=== PATIENT | male | born 1945 | race Caucasian/White ===

== ENCOUNTER → 2018-08-18 | Day surgery (SDC) | payer MEDICARE ==
[2018-08-14 12:49] LABS: BASOPHILS % 0.6 % (0.0-1.0); EOSINOPHILS # (AUTO) 0.3 (0.0-0.4); HEMATOCRIT 37.7 % (38.2-49.6); HEMOGLOBIN 13.1 g/dL (14.0-18.0); LYMPHOCYTES # (AUTO) 2.3 (1.0-3.2); LYMPHOCYTES % 34.2 % (18.0-39.1); MEAN CORPUSCULAR HEMOGLOBIN 29.3 pg (28-32); MEAN CORPUSCULAR HGB CONC 34.7 g/dL (31-35); MEAN CORPUSCULAR VOLUME 84.3 fL (81-99); MONOCYTES # (AUTO) 0.7 (0.2-0.8); MONOCYTES % 10.1 % (4.4-11.3); NEUTROPHILS # (AUTO) 3.3 (2.1-6.9); NEUTROPHILS % 49.9 % (38.7-80.0); PLATELET COUNT 135 x10e3/uL (140-360); RED BLOOD COUNT 4.47 x10e6/uL (4.3-5.7); RED CELL DISTRIBUTION WIDTH 12.8 % (11.7-14.4)
--- NOTE | 2018-08-14 13:20 | Diagnostic Imaging Report ---
Exam: Abdominal film Clinical History: Preoperative study for lithotripsy Comparison: None. DISCUSSION: Bilateral round lucent centered pelvic calcifications likely reflect phleboliths. No definite calcifications project over the renal shadows or expected ureteral courses. Prostatic brachytherapy seeds are noted. 2 seeds project over the right sacral ala as well. Bowel gas pattern is nonobstructive. Regional skeletal structures are intact. IMPRESSION: No plain film evidence of urolithiasis. Signed by: Dr. Sukumar Griffin M.D. on 08/14/2018 1:17 PM
--- NOTE | 2018-08-14 14:12 | Diagnostic Imaging Report ---
EXAM: CHEST 2 VIEWS DATE: 08/14/2018 12:18 PM INDICATION: Preop ESWL COMPARISON: None FINDINGS: Lines and tubes: None Heart size normal. No focal pulmonary opacity, pleural effusion or pneumothorax. Faint density projected on right lower chest compatible with nipple shadow. There is a 3 mm linear metallic surgical clip or foreign body projected in the right middle lobe. Upper abdomen unremarkable. No acute bony abnormality. IMPRESSION: No evidence for acute disease. Signed by: Dr. Dagoberto Becker M.D. on 08/14/2018 2:08 PM
[~2018-08-18] MED LIST: ASPIRIN325 MG PO; BELLADONNA/OPIUM 30 MG SUPP RC ONE; BUPROPION HCL100 MG PO; CALCIUM CITRAT200 MG PO; CEFTRIAXONE SOD 1 GM/NS 50 ML 50 ML IV ONE; COQ-10100 MG PO; CRESTOR10 MG PO; CYMBALTA30 MG PO; DEXAMETHASONE SOD PHOS INJ 4 MG/ML VIAL ONE; DOXAZOSIN MESYLA2 MG PO; FIBER500 MG PO; IOPAMIDOL 610MG/1ML 300 MG/ML VIAL IV ONE; LIDOCAINE HCL 2% LOCAL INJ 5 ML SDV VIAL INJ ONE; LOSARTAN POTAS100 MG PO; LUPRON DEPOT7.5 MG INJ; ONDANSETRON HCL INJ 2MG/ML 2ML 2 MG/ML VIAL ONE; PROPOFOL IV EMULSION 10 MG/ML 20 ML VIAL ONE; SEVOFLURANE INHAL SOLN 250 ML PEN BTL ONE
--- OUTSIDE RECORDS SUMMARY | 2018-08-18 06:04 | XMS REPORT ---
Author Author [facility] Address Unknown Phone Unavailable Care Team Providers Care Pressure Testing Technician Name Role Phone FLORENCIA PORTILLO Unavailable Unavailable Problems This patient has no known problems. Allergies, Adverse Reactions, Alerts This patient has no known allergies or adverse reactions. Medications This patient has no known medications. Results Test Description Test Time Test Comments Text Results Atomic Results Result Comments CHEST 2 VIEWS 2018-08-14 14:04:00 [facility] [address] [address] Patient Name: BONY VILLASEÑOR MR #: [id number] : 1945 Age/Sex: 73/M Req #: [id number] Adm Physician: Ordered by: FLORENCIA PORTILLO MD Report #: [id number] Location: OR Room/Bed: Procedure: [id number] DX/CHEST 2 VIEWS Exam Date: 08/14/18 Exam Time: 1250 REPORT STATUS: Signed EXAM: CHEST 2 VIEWS DATE: 08/14/2018 12:18 PM INDICATION: Preop ESWL COMPARISON: None FINDINGS: Lines and tubes: None Heart size normal. No focal pulmonary opacity, pleural effusion or pneumothorax. Faint density projected on right lower chest compatible with nipple shadow. There is a 3 mm linear metallic surgical clip or foreign body projected in the right middle lobe. Upper abdomen unremarkable. No acute bony abnormality. IMPRESSION: No evidence for acute disease. Signed by: Dr. Juan Flowers M.D. on 08/14/2018 2:08 PM Dictated By: JUAN FLOWERS MD 07 Transcribed By: MAYNOR on 08/14/181407 COPY TO: FLORENCIA PORTILLO MD ABDOMEN-1VIEW ([facility]) 2018-08-14 13:15:00 [address] [address] Patient Name: BONY VILLASEÑOR MR #: [id number] : 1945 Age/Sex: 73/M Req #: [id number] Adm Physician: Ordered by: FLORENCIA PORTILLO MD Report #: [id number] Location: OR Room/Bed: Procedure: [id number] DX/ABDOMEN-1VIEW ([facility]) Exam Date: 08/14/18 Exam Time: 1250 REPORT STATUS: Signed Exam: Abdominal film Clinical History: Preoperative study for lithotripsy Comparison: None. DISCUSSION: Bilateral round lucent centered pelvic calcifications likely reflect phleboliths. No definite calcifications project over the renal shadows or expected ureteral courses. Prostatic brachytherapy seeds are noted. 2 seeds project over the right sacral ala as well. Bowel gas pattern is nonobstructive. Regional skeletal structures are intact. IMPRESSION: No plain film evidence of urolithiasis. Signed by: Dr. Angela Gómez M.D. on 08/14/2018 1:17 PM Dictated By: ANGELA GÓMEZ MD 16 Transcribed By: MAYNOR on 08/14/181316 COPY TO: FLORENCIA PORTILLO MD
--- NOTE | 2018-08-18 07:10 | NUR ---
SPIRITUAL CARE - Pre-Surgery Assessment: Pt in bed. Pt reported supportive attention from family and friends. Intervention: I provided pastoral presence, hospitality, and sympathetic listening. I acquainted pt with availability of lumber racker while hospitalized. Outcome: Pt expressed appreciation for visit. No need for follow up indicated at this time. HAYDEN Lilain Spiritual Care Department O: [phone] Pager: [phone] ([phone] number calling from)
[2018-08-18 10:00] VITALS: BP 127/66
--- NOTE | 2018-08-28 02:40 | Operative Report ---
DATE OF PROCEDURE: 08/18/2018 SURGEON: Edmund Camacho MD PREOPERATIVE DIAGNOSES: 1. Left nephrolithiasis. 2. Obstructive benign prostatic hypertrophy. 3. Prostate cancer. POSTOPERATIVE DIAGNOSES: 1. Left nephrolithiasis. 2. Obstructive benign prostatic hypertrophy. 3. Prostate cancer. OPERATION PERFORMED: 1. Staged left-sided extracorporeal shockwave lithotripsy (separate procedure performed for the left nephrolithiasis). 2. Cystourethroscopy with bilateral ureteral catheterization and retrograde ureteropyelography (separate procedure performed for the obstructive BPH). 3. Interpretation of retrograde ureteropyelography. 4. Supervision of fluoroscopy, no radiologist present. ANESTHESIA: General. COMPLICATIONS: None. CLINICAL SUMMARY: Festus Garcias is a 73-year-old man with prostate cancer. He is status post radiotherapy. He has had radiorecurrent prostate cancer and was started on hormonal therapy with excellent response. He is brought to the operating today to manage his nephrolithiasis and evaluate his lower urinary tract. He is aware of the risks of bleeding, infection, injury to adjacent structures, need for additional procedures and elected to proceed. OPERATIVE PROCEDURE IN DETAIL: Informed consent was verified. Festus Garcias was properly identified, taken to the operating room, placed on the lithotripsy table in supine position. Anesthesia was uneventfully begun. The patient's 6 mm left nephrolithiasis was localized with biplanar fluoroscopy. A total 3000 shocks were delivered with excellent fragmentation. The patient was then carefully and gently repositioned in dorsal lithotomy position with all pressure points well padded. His genitalia were prepared and draped in usual sterile fashion. A cystoscope sheath with the visual obturator in place was atraumatically inserted in the patient's urethra. It was guided down the urethra through the prostate bed, which was significant for visually obstructing BPH and into the patient's bladder where there were trabeculations noted. Normally positioned and configured ureteral orifices were identified. There were no suspicious mucosal lesions. There were no tumors. There were no stones. A ureteral catheter was used to cannulate each ureter and retrograde ureteral pyelograms were performed. Interpretation of retrograde ureteropyelography: Contrast was instilled in retrograde fashion bilaterally. There were no tumors, no stones, no diverticula. Unobstructed drainage was observed bilaterally fluoroscopically. There were filling defects in the left kidney corresponding to the region of lithotripsy, which would be consistent with stone fragments as well as a blood clot. Nevertheless, there was unobstructed drainage observed fluoroscopically on left hand side. The patient's bladder was drained, cystoscope was withdrawn, and the patient was uneventfully reversed from anesthesia and taken to recovery room in stable condition. There were no complications to the procedure. The patient tolerated the procedure well. postoperative instructions were given. We will follow the patient up in the office. Edmund Camacho MD OH/MODL /[id number] cc: Aiden Sims MD
== END | disposition home or self-care (01) ==
LOC: OR 06:01
PROVIDERS: ATTEND Urology
DX: N20.0 Calculus of kidney (principal); N40.1 Benign prostatic hyperplasia with lower urinary tract symptoms; N13.8 Other obstructive and reflux uropathy; C61 Malignant neoplasm of prostate; I10 Essential (primary) hypertension; I25.10 Atherosclerotic heart disease of native coronary artery without angina pectoris; K21.9 Gastro-esophageal reflux disease without esophagitis; Z87.891 Personal history of nicotine dependence; Z98.0 Intestinal bypass and anastomosis status
CPT/HCPCS: 36415; 50590; 52005; 71046; 74018; 85025; 93005; C1758; J0696; J1100; J2001; J2405; J2704; Q9967

== ENCOUNTER → 2018-12-07 | Outpatient (CLI) | payer MEDICARE, OTHER ==
[~2018-12-07] MED LIST changes: -BELLADONNA/OPIUM 30 MG SUPP RC ONE; -CEFTRIAXONE SOD 1 GM/NS 50 ML 50 ML IV ONE; -DEXAMETHASONE SOD PHOS INJ 4 MG/ML VIAL ONE; -IOPAMIDOL 610MG/1ML 300 MG/ML VIAL IV ONE; -LIDOCAINE HCL 2% LOCAL INJ 5 ML SDV VIAL INJ ONE; -ONDANSETRON HCL INJ 2MG/ML 2ML 2 MG/ML VIAL ONE; -PROPOFOL IV EMULSION 10 MG/ML 20 ML VIAL ONE; -SEVOFLURANE INHAL SOLN 250 ML PEN BTL ONE
--- NOTE | 2018-12-07 16:20 | Diagnostic Imaging Report ---
Exam: KUB; 3 views History: History of renal stones Comparison: None available Findings: Prostate seeds are noted. No calcified renal or ureteral stones are seen. Abdominal bowel gas pattern is nonspecific. No suspicious appearing bone knee lesions. Pelvic calcifications appear compatible with phleboliths. Impression: No calcified renal stones identified. Signed by: Dr. Rahul Ray DO on 12/07/2018 4:16 PM
== END ==
LOC: RAD 13:39
PROVIDERS: ATTEND Urology
DX: N20.1 Calculus of ureter (principal)
CPT/HCPCS: 74018

== ENCOUNTER 2019-03-06 11:07 | Inpatient (IN) | payer MEDICARE ==
[~2019-03-06] VITALS: Ht 193 cm; Wt 123.0 kg
[~2019-03-06 11:07] MED LIST changes: +AMLODIPINE BESIL1 GM PO
[2019-03-06] MEDS ORDERED: THROMBIN FOR SOLN 5,000 UNIT VIAL ONE ×2 (11:35→11:36)
[2019-03-06] MEDS ORDERED: SODIUM CHLORIDE 0.9% 500ML 500 ML ONE (11:35)
[2019-03-06] MEDS ORDERED: PROTAMINE SULFATE 10 MG/ML 5 ML VIAL ONE (11:35)
[2019-03-06] MEDS ORDERED: HEPARIN SOD (PORCINE) 5,000 UNIT/ML VIAL ONE (11:35)
[2019-03-06] MEDS ORDERED: BUPIVACAINE HCL 0.5% INJ 30 ML VIAL INJ ONE (11:35)
[2019-03-06] MEDS ORDERED: HEPARIN SOD (PORCINE) 1000 UNIT/ML 30ML ONE (11:36)
[2019-03-06] MEDS ORDERED: LIDOCAINE HCL 1% LOCAL INJ 20 ML VIAL ONE (11:36)
[2019-03-06] MEDS ORDERED: HEPARIN SOD/SOD CHLORIDE 1,000 ML ONE (11:41)
[2019-03-06] MEDS ORDERED: LIDOCAINE HCL 1% 2 ML AMP ONE (12:15)
[2019-03-06] MEDS ORDERED: LIDOCAINE HCL (LTA) 4 ML SOLN ONE (12:21)
[2019-03-06] MEDS ORDERED: ACETAMINOPHEN 1000 MG/100 ML 100 ML IV ONE (12:21)
[2019-03-06] MEDS ORDERED: LIDOCAINE HCL 2% JELLY 5 ML TUBE ONE (14:47)
[2019-03-06] MEDS ORDERED: SEVOFLURANE INHAL SOLN 250 ML PEN BTL ONE (14:47)
[2019-03-06] MEDS ORDERED: ONDANSETRON HCL INJ 2MG/ML 2ML 2 MG/ML VIAL ONE (14:47)
[2019-03-06] MEDS ORDERED: ROCURONIUM BROMIDE 10 MG/ML 5ML VIAL ONE (14:47)
[2019-03-06] MEDS ORDERED: DESFLURANE 240 ML BTL INH ONE (14:47)
[2019-03-06] MEDS ORDERED: PROPOFOL IV EMULSION 10 MG/ML 20 ML VIAL ONE (14:47)
[2019-03-06] MEDS ORDERED: DEXAMETHASONE SOD PHOS INJ 4 MG/ML VIAL ONE (14:47)
[2019-03-06] MEDS ORDERED: LIDOCAINE HCL 2% LOCAL INJ 5 ML SDV VIAL INJ ONE (14:47)
[2019-03-06] MEDS ORDERED: SUGAMMADEX SODIUM 200 MG/2 ML VIAL IV ONE (15:39)
[2019-03-06 16:26] LABS: BASOPHILS % 0.2 % (0.0-1.0); EOSINOPHILS % 0.4 % (0.0-6.0); HEMATOCRIT 30.2 % (38.2-49.6); HEMOGLOBIN 10.4 g/dL (14.0-18.0); LYMPHOCYTES # (AUTO) 0.8 (1.0-3.2); LYMPHOCYTES % 8.6 % (18.0-39.1); MEAN CORPUSCULAR HEMOGLOBIN 29.7 pg (28-32); MEAN CORPUSCULAR HGB CONC 34.4 g/dL (31-35); MEAN CORPUSCULAR VOLUME 86.3 fL (81-99); MONOCYTES # (AUTO) 0.2 (0.2-0.8); MONOCYTES % 2.1 % (4.4-11.3); NEUTROPHILS # (AUTO) 8.4 (2.1-6.9); NEUTROPHILS % 86.7 % (38.7-80.0); PLATELET COUNT 129 x10e3/uL (140-360)
[2019-03-06 16:37] LABS: ALANINE AMINOTRANSFERASE 11 IU/L (0-55); ALBUMIN 3.6 g/dL (3.5-5.0); ALBUMIN/GLOBULIN RATIO 1.4 (0.8-2.0); ALKALINE PHOSPHATASE 66 IU/L (40-150); ANION GAP 13.2 mmol/L (8-16); BLOOD UREA NITROGEN 19 mg/dL (7-26); BUN/CREATININE RATIO 17 (6-25); CALCIUM 9.2 mg/dL (8.4-10.2); CARBON DIOXIDE 23 mmol/L (22-29); CHLORIDE 107 mmol/L (98-107); CREATININE, SERUM 1.09 mg/dL (0.72-1.25); EST GLOMERULAR FILTRATION RATE > 60 ML/MIN (60-); GLUCOSE 156 mg/dL (74-118); POTASSIUM 4.2 mmol/L (3.5-5.1); SODIUM 139 mmol/L (136-145)
--- NOTE | 2019-03-06 16:56 | Diagnostic Imaging Report ---
Chest, 1 view, 03/06/2019. History: Postop. Comparison: 08/14/2018. Findings: The cardiomediastinal silhouette and pulmonary vasculature are within normal limits for a portable exam. There is no focal consolidation or pleural effusion. There are no acute osseous or soft tissue abnormalities. Impression: No acute cardiopulmonary abnormality. Signed by: Rashid Garza on 03/06/2019 4:53 PM
[2019-03-06 17:00] VITALS: BP 139/67
--- NOTE | 2019-03-06 18:32 | History and Physical ---
CHIEF COMPLAINT: "I had carotid surgery today." HISTORY OF PRESENT ILLNESS: This is a 73-year-old white man, who was admitted to [facility] with diagnosis of severe left-sided carotid atherosclerosis. The patient underwent successful left-sided carotid endarterectomy today. The surgery was performed by his vascular surgeon, Dr. Deshaun Cannon. The patient voices no complaints at this time other than soreness on his left side of his neck. The patient underwent a left heart catheterization 2 weeks ago that revealed diffuse nonobstructive coronary artery disease, thus no percutaneous coronary intervention was performed. However, the angiography after the heart catheterization did reveal significant obstruction in the right internal carotid artery. Thus, in the near future, the patient will most likely have an elective right carotid endarterectomy. Blood work performed today on March 06, 2019, revealed BUN and creatinine 19 and 1.09 respectively. Potassium is 4.2. Glucose 156 mg/dL. The patient's hemoglobin is 10.4 g/dL. White blood cell count is 9600 with 86% segmented neutrophils. Chest x-ray did not reveal any acute pathology. REVIEW OF SYSTEMS: GENERAL: Weight is stable. No fever or chills. HEENT: No headaches. No vision changes. CARDIOVASCULAR: No chest pain or shortness of breath. No cough. GI: No nausea, vomiting, or constipation. : No Richardson catheter in place. NEUROMUSCULAR: No limb weakness or numbness. The patient denies any recent stroke-like symptoms. PAST MEDICAL HISTORY: 1. Hypertensive heart disease. 2. Stage 2 chronic kidney disease. 3. Depression. 4. Hyperlipidemia. 5. Carotid atherosclerosis. 6. Nonobstructive coronary artery disease. 7. Ischemic heart disease (myocardial infarction in 1989). 8. Mild obesity. 9. Prostate cancer, in remission. 10. Benign prostatic hypertrophy. 11. Hypogonadism. 12. Varicose veins. 13. Vitamin D deficiency. 14. Prediabetes. PAST SURGICAL HISTORY: 1. Partial colectomy in 2001, because of precancerous polyps. 2. Left carotid endarterectomy today. FAMILY HISTORY: Noncontributory. ALLERGIES: NO KNOWN DRUG ALLERGIES. SOCIAL HISTORY: He is . He lives with his . He is retired. No history of tobacco or alcohol use. MEDICATIONS: 1. Amlodipine 5 mg every night. 2. Aspirin 325 mg daily. 3. Bupropion 300 mg daily. 4. Calcium citrate 200 mg b.i.d. 5. Doxazosin 4 mg daily. 6. Duloxetine 60 mg daily. 7. Lupron injection every 6 months. 8. Losartan 100 mg at bedtime. 9. Methylcellulose 1000 mg daily. 10. Rosuvastatin 10 mg at bedtime. 11. Coenzyme Q10 200 mg daily. PHYSICAL EXAMINATION: GENERAL: He is awake, alert, and fluent, in no distress. Very pleasant. His and adult son are at bedside. VITAL SIGNS: Height is 6 feet 2 inches, weight 267 pounds, BMI 34, blood pressure is 154/78, pulse 74, respiratory rate 18, temperature 97.1, and oxygen saturation 98% on 2 L oxygen. INTEGUMENT: Skin is warm and dry. No pallor, jaundice, or diaphoresis. HEENT: Anterior sclerae. Moist mucous membranes. NECK: Supple. The left carotid area is currently dressed. CARDIOVASCULAR: Distant heart sounds. Regular rate and rhythm with an S4 gallop. LUNGS: No rales. No rhonchi or wheezes. ABDOMEN: Benign. EXTREMITIES: No edema or deformity. NEUROLOGIC: Intact. No gross focal deficits appreciated. DIAGNOSES: 1. Status post left carotid endarterectomy. 2. Right carotid atherosclerosis. 3. Ischemic heart disease (nonobstructive coronary artery disease). 4. Hypertensive heart disease. 5. Stage 2 chronic kidney disease. PLAN: 1. Monitor in the intensive care unit. 2. Continue home medications. 3. Consult Cardiology. 4. Recommend incentive spirometer use to prevent atelectasis. 5. Follow hemoglobin and hematocrit. I spent 75 minutes in the care of this intensive care unit patient. MD BERNARDO Landis/RYANN /[id number] MTDD
[2019-03-06 19:00] VITALS: BP 147/61
[2019-03-06] MEDS ORDERED: D5.45%NS/KCL 20MEQ 1,000 ML IV ONE (19:00)
[2019-03-06 20:00] VITALS: BP 160/81
[2019-03-06] MEDS: CEFAZOLIN SOD 1 GM/NS 50ML 50 ML IV SCH (20:03)
[2019-03-06] MEDS: ACETAMINOPHEN 1000 MG/100 ML IV PRN (20:03)
[2019-03-06 21:00] VITALS: BP 160/77
[2019-03-06] MEDS ORDERED: LOSARTAN POTASSIUM 100 MG TAB PO SCH (21:00)
[2019-03-06] MEDS ORDERED: AMLODIPINE BESYLATE 5 MG TAB PO SCH (21:00)
[2019-03-06] MEDS ORDERED: AMLODIPINE BESYLATE 5 MG PO SCH (21:00)
[2019-03-06] MEDS ORDERED: SIMVASTATIN 20 MG TAB PO SCH (21:00)
--- NOTE | 2019-03-06 21:37 | Operative Report ---
DATE OF PROCEDURE: 03/06/2019 SURGEON: Deshaun Cannon MD PREOPERATIVE DIAGNOSES: Bilateral carotid stenosis, hypertension. POSTOPERATIVE DIAGNOSES: Bilateral carotid stenosis, hypertension. OPERATIVE PROCEDURES: Left carotid endarterectomy with EEG monitoring and prosthetic patch repair. RETRIEVAL SPECIALIST: Nursing staff. ANESTHESIA: General endotracheal with EEG. INDICATIONS: This is a 73-year-old man with bilateral carotid stenoses that are not asymptomatic. Carotid angiogram performed on 02/15/2019 at [facility] revealed an 80% to 90% left internal carotid artery stenosis and an 80% right internal carotid artery stenosis. Staged carotid endarterectomies were recommended. Left carotid endarterectomy was recommended at the first procedure. Prior to surgery, I described the operation to the patient, his , and son. I told him that the risks of surgery would include , bleeding, infection, heart attack, stroke, pneumonia, prolonged ICU stay, mechanical ventilation, tracheostomy, amputation, renal failure, etc. I told them that the risk of stroke might be major or lethal during the operation or in the early postoperative period would be on the order of 3% to 4%. I told them that after correction of both carotid stenosis, the risk of stroke would be approximately 0.5% per year. I told them that if they did not get the surgery, the risk of stroke might be as high as 5% to 6% per year and that this might also be a major or lethal stroke. I told them the only risk to proceed with surgery was to lessen the risk of stroke over the long-term and that the operation would not be expected to improve neurologic function. The patient, , and son all stated that they understood, no further questions, and wanted to proceed. FINDINGS: Tight left internal carotid artery stenosis. Carotid endarterectomy performed uneventfully. EEG remained unchanged throughout. The patient emerged from anesthesia, neurologically intact. DESCRIPTION OF PROCEDURE: The patient was taken to the operative room on March 06, 2019 and placed supine upon the operating table. General endotracheal anesthesia was smoothly induced after EEG monitoring had been instituted. The left neck and left anterior chest were sterilely prepped and draped in the usual fashion using alcohol prewash and Betadine scrub and solution. Time-out was performed appropriately. Incision was made anterior to the left sternocleidomastoid. Dissection was carried down to the carotid sheath. Hypoglossal nerve was clearly identified and meticulously kept out of the field. Common, external and internal carotid arteries were isolated and controlled. The patient was systemically heparinized using 1 mg/kg of heparin intravenously. The internal carotid artery was occluded followed by external and common carotid arteries. Arteriotomy was created starting on the distal common carotid artery, extending onto the internal carotid artery to beyond the area of plaque formation. Endarterectomy was then performed uneventfully. A nicely feathered plaque was removed from the distal internal carotid artery. The common carotid artery plaque was divided at an area of minimal involvement. Endarterectomy was also then carried out at the base of the external carotid artery. All particulate matter was removed. A 7-0 tacking sutures were used proximally and distally. An 8 mm Dacron patch was then sewn into place using 2 running 7-0 Prolene. Prior to completing the patch repair, the arteriotomy was again copiously irrigated. No particulate matter was found. A 4.0 mm dilator passed easily into the distal internal carotid artery. The external carotid artery was opened and air evacuated from the area of repair. The repair was then completed. The common carotid was opened into the external carotid artery for 12 beats and then the internal carotid artery was opened as well. There was an excellent palpable pulse in the distal internal carotid artery as well as a strong Doppler signal. A half dose of protamine was used to reverse the systemic heparin that had been given in a dose of 1 mg/kg intravenously prior to occlusion of any of the vascular structures. There was excellent hemostasis. The wound was closed in layers using absorbable suture. Sterile dressings were applied. Sponge, instrument, needle counts were correct both prior to and after wound closure. Independent search of the operative field by both operating surgeons and nurse revealed no retained instruments or sponges. The patient tolerated the procedure well, was extubated in the operating room, was neurologically intact and was taken to the recovery area in stable condition. MD IVÁN Mccartney/RYANN /[id number]
[2019-03-06 22:00] VITALS: BP 169/73
[2019-03-06 23:00] VITALS: BP 162/76
[2019-03-07] VITALS (14 sets, daily range): BP systolic 134–170; BP diastolic 65–90
[2019-03-07] MEDS: ACETAMINOPHEN 1000 MG/100 ML IV PRN (01:55)
[2019-03-07] MEDS: CEFAZOLIN SOD 1 GM/NS 50ML 50 ML IV SCH (04:11)
--- NOTE | 2019-03-07 05:03 | Consultation ---
DATE OF CONSULTATION: Pulmonary Critical Care Consultation REASON FOR THE CONSULT: ICU management. HISTORY OF PRESENT ILLNESS: Mr. Garcias is a 73-year-old male, who underwent left carotid endarterectomy by Dr. Deshaun Cannon. He is doing well. Postprocedure, he had episodes of dizziness that resulted in evaluation and then found to had carotid atherosclerosis and underwent left carotid endarterectomy. He is denying any complaints of chest pain, nausea, vomiting, or diarrhea. REVIEW OF SYSTEMS: Negative except, GENERAL: Denies any fever or chills. HEAD: Denies any head trauma. ENT: Denies any earache. CVS: Denies any chest pain. The rest of the review of systems are negative except as in HPI. PAST MEDICAL HISTORY: Hypertension, hypertensive heart disease, CKD, depression, BPH, and vitamin D deficiency. PAST SURGICAL HISTORY: Partial colectomy in 2001 because of precancerous polyp and left carotid endarterectomy. FAMILY AND SOCIAL HISTORY: He does not smoke. Does not drink. He is , lives with his . MEDICATIONS: Reviewed. PHYSICAL EXAMINATION: VITAL SIGNS: Temperature 97.8, pulse of 80, blood pressure 147/81, respiratory rate of 18, and O2 saturation 98% on room air. HEENT: Head is atraumatic and normocephalic. NECK: Supple. CHEST: Clear to auscultation bilaterally. No wheezing. HEART: S1, S2 audible. ABDOMEN: Soft. EXTREMITIES: No pedal edema. NEUROLOGIC: Awake and alert. LABORATORY DATA: White count of 9.6, hemoglobin 10.4, and platelets 129. ASSESSMENT AND PLAN: Mr. Garcias is a 73-year-old male, who underwent left carotid endarterectomy. Plan for right carotid endarterectomy. He is doing well. Continue the patient on supportive care. Resume antihypertensive medication. The patient is in no respiratory distress. Thank you for this consult. MD BRE French/RYANN /[id number]
[2019-03-07 05:13] LABS: BASOPHILS % 0.1 % (0.0-1.0); HEMATOCRIT 32.8 % (38.2-49.6); HEMOGLOBIN 11.2 g/dL (14.0-18.0); LYMPHOCYTES # (AUTO) 1.1 (1.0-3.2); LYMPHOCYTES % 10.6 % (18.0-39.1); MEAN CORPUSCULAR HEMOGLOBIN 29.6 pg (28-32); MEAN CORPUSCULAR HGB CONC 34.1 g/dL (31-35); MEAN CORPUSCULAR VOLUME 86.5 fL (81-99); MONOCYTES # (AUTO) 0.7 (0.2-0.8); MONOCYTES % 6.9 % (4.4-11.3); NEUTROPHILS # (AUTO) 8.5 (2.1-6.9); PLATELET COUNT 152 x10e3/uL (140-360); RED BLOOD COUNT 3.79 x10e6/uL (4.3-5.7); RED CELL DISTRIBUTION WIDTH 12.8 % (11.7-14.4)
[2019-03-07 05:36] LABS: ALANINE AMINOTRANSFERASE 12 IU/L (0-55); ALBUMIN 3.8 g/dL (3.5-5.0); ALBUMIN/GLOBULIN RATIO 1.3 (0.8-2.0); ALKALINE PHOSPHATASE 77 IU/L (40-150); ANION GAP 14.5 mmol/L (8-16); BLOOD UREA NITROGEN 16 mg/dL (7-26); BUN/CREATININE RATIO 15 (6-25); CALCIUM 9.5 mg/dL (8.4-10.2); CARBON DIOXIDE 24 mmol/L (22-29); CHLORIDE 103 mmol/L (98-107); CREATININE, SERUM 1.07 mg/dL (0.72-1.25); EST GLOMERULAR FILTRATION RATE > 60 ML/MIN (60-); GLUCOSE 128 mg/dL (74-118); POTASSIUM 4.5 mmol/L (3.5-5.1); SODIUM 137 mmol/L (136-145)
[2019-03-07] MEDS ORDERED: ASPIRIN 325 MG TAB PO SCH (09:00)
[2019-03-07] MEDS ORDERED: SIMVASTATIN 40 MG TAB PO SCH (09:00)
[2019-03-07] MEDS ORDERED: BUPROPION HCL 100 MG TAB PO SCH (09:00)
[2019-03-07] MEDS ORDERED: BUPROPION HCL 150 MG TABCR PO SCH (09:00)
[2019-03-07] MEDS ORDERED: DOXAZOSIN MESYLATE 2 MG TAB PO SCH (09:00)
[2019-03-07] MEDS ORDERED: DULOXETINE HCL 30 MG DELAYED RELEASE PO SCH (09:00)
[2019-03-07] MEDS ORDERED: KETOROLAC TROMETHAMINE 30 MG/ML VIAL IV ONE (09:30)
--- NOTE | 2019-03-07 10:44 | NUR ---
7389- Dr. Sims paged due to patient reporting neck and back pain but IV tylenol not helping with pain. MD ordered Toradol and stated that if ok with Dr. Cannon patient may be discharged today and follow up with Dr. Sims in [address] Lai patient ok to go discharge today as well. 5338- Dr. Cannon called and physician states patient can go home today. Instructions for discharge keep incision clean and dry. Follow up with Dr. Cannon in 3 weeks. Patient given discharge instructions not to lift more than 5 lbs till follow up with Dr. Cannon, and monitor site for s/s of infection and fever. Keep incision clean and dry. Patient stated they understand discharge instructions. Addendum: 03/07/19 at 1137 by Marysol Elizondo RN 1100- Patient ambulated in hallway prior to discharge and tolerated well. Patients family members took pt home.
[2019-03-07] MEDS ORDERED: CEFAZOLIN SOD 1 GM/NS 50ML 50 ML IV SCH ×2 (11:00)
--- NOTE | 2019-03-07 13:12 | NUR ---
Dictated DC summary: [id number]
--- NOTE | 2019-03-07 14:27 | Discharge Summary ---
ADMIT DIAGNOSES: 1. Severe left-sided occlusive carotid artery stenosis. 2. Right carotid atherosclerosis. 3. Ischemic heart disease (nonobstructive coronary artery disease). 4. Hypertensive heart disease. 5. Stage II chronic kidney disease. DISCHARGE DIAGNOSES: 1. Status post left carotid endarterectomy. 2. Right carotid atherosclerosis. 3. Ischemic heart disease (nonobstructive coronary artery disease). 4. Hypertensive heart disease. 5. Stage II chronic kidney disease. HOSPITAL COURSE: This is a 73-year-old white man, who was initially admitted to [facility] diagnosis of severe left-sided occlusive carotid artery disease. During this hospitalization, the patient underwent successful left carotid endarterectomy, which was performed by Dr. Deshaun Cannon. The patient also has underlying history of right carotid atherosclerosis, which most likely will need to be corrected in the near future. The patient also recently underwent left heart catheterization, which revealed nonobstructive coronary artery disease. In other words, the patient did not receive percutaneous coronary intervention. The patient's brief hospitalization was unremarkable. The patient was watched in Intensive Care Unit at [facility] after his left-sided carotid endarterectomy, which he tolerated quite well. His condition on discharge is stable. The patient was not exhibiting any neurologic deficits on discharge. The patient was seen by his Fan Mail Clerk, namely Dr. Bruno Ceja as well as a Network Cabler, Dr. Darinel Meneses during this hospitalization. The patient was also seen by the Cardiovascular Surgeon, Dr. Deshaun Cannon. CONDITION ON DISCHARGE: Stable. DISCHARGE MEDICATIONS: 1. Amlodipine 5 mg daily. 2. Aspirin 325 mg daily. 3. Bupropion 300 mg daily. 4. Calcium citrate 200 mg b.i.d. 5. Doxazosin 4 mg daily. 6. Duloxetine 60 mg daily. 7. Lupron injection every six months. 8. Losartan 100 mg at bedtime. 9. Methylcellulose 1000 mg daily. 10. Rosuvastatin 10 mg at bedtime. 11. Coenzyme Q10 200 mg daily. FOLLOWUP INSTRUCTIONS: The patient was instructed to follow up with his primary care physician namely myself, Dr. Aiden Sims in 1 or 2 weeks. The patient instructed to follow up with Dr. Cannon in 3 weeks. MD BERNARDO Landis/CARLL /[id number] cc: MD Bruno Mccartney MD Muhammad Faisal, MD MTDD
--- NOTE | 2019-03-07 18:23 | Consultation ---
DATE OF CONSULTATION: 03/06/2019 Cardiology Consultation ADDITIONAL ATTENDING PHYSICIAN: Deshaun Cannon MD. Thank you so much for asking me to see this nice man again in consultation. REASON FOR CONSULTATION: Mr. Garcias is a pleasant 73-year-old man, who is admitted at this time for management of carotid disease. HISTORY OF PRESENT ILLNESS: The patient had cardiac cath and carotid angiogram on February 15, 2019, that showed severe bilateral carotid disease, about 90% in the left internal carotid and about 80% in the right internal carotid. Cardiac cath performed the same time showed chronic total occlusion of the right coronary artery with collateral filling both from the right and the left. Minor other coronary artery disease about 30% circumflex and 10% LAD. His last echocardiogram showed good left ventricular function. PAST MEDICAL HISTORY: Significant for remote inferior myocardial infarction. He has hyperlipidemia and hypertension. He has had previous partial colectomy and previous prostate cancer. CURRENT MEDICATIONS: At home include aspirin 325 mg daily, Crestor 10 mg daily, vitamin D, CoQ10, doxazosin 4 mg daily, Wellbutrin XL 300 mg daily, Cymbalta 60 mg daily, losartan 100 mg daily, Lupron injection twice a year, and amlodipine 5 mg daily. ALLERGIES: HE HAS NO KNOWN MEDICAL ALLERGIES. PERSONAL AND SOCIAL HISTORY: He does not smoke. PHYSICAL EXAMINATION: GENERAL: At this time shows a pleasant white man, who is alert and oriented, holding an ice bag on the left side of his neck. VITAL SIGNS: Blood pressure 120/70. HEAD, EYES, EARS, NOSE, AND THROAT: Otherwise unremarkable. THORAX: Heart sounds S1 and S2 are equal. No murmurs. LUNGS: Clear. ABDOMEN: Protuberant. EXTREMITIES: No cyanosis, clubbing, or edema. DIAGNOSTIC DATA: EKG shows sinus rhythm. ASSESSMENT: 1. Carotid disease, status post left carotid endarterectomy. 2. Coronary artery disease as mentioned above, clinically stable. 3. Hyperlipidemia. 4. Dysthymic disorder. PLAN: We will continue home medications. Monitoring carefully in the ICU after carotid endarterectomy. Thank you for asking us to see him in consultation. MD ELKE Flores/RYANN /[id number] cc: Aiden Sims MD
== END 2019-03-07 11:20 | disposition home or self-care (01) | DRG 27 ==
LOC: OR 11:07 → PACU V 16:18 → ICU 16:56
PROVIDERS: ADMIT Internal Medicine; ATTEND Internal Medicine
PROC: 03UL3JZ Supplement Left Internal Carotid Artery with Synthetic Substitute, Percutaneous Approach (ICD-10-PCS; 2019-03-06)
PROC: 03CL3ZZ Extirpation of Matter from Left Internal Carotid Artery, Percutaneous Approach (ICD-10-PCS; principal; 2019-03-06 13:00)
DX: I65.22 Occlusion and stenosis of left carotid artery (principal); I65.21 Occlusion and stenosis of right carotid artery; I13.10 Hypertensive heart and chronic kidney disease without heart failure, with stage 1 through stage 4 chronic kidney disease, or unspecified chronic kidney disease; N18.2 Chronic kidney disease, stage 2 (mild); I25.9 Chronic ischemic heart disease, unspecified; I25.10 Atherosclerotic heart disease of native coronary artery without angina pectoris; E78.5 Hyperlipidemia, unspecified; F34.1 Dysthymic disorder; I25.2 Old myocardial infarction; Z85.46 Personal history of malignant neoplasm of prostate; Z85.038 Personal history of other malignant neoplasm of large intestine
CPT/HCPCS: 36415; 71045; 80053; 85025; 86850; 86900; 86920; 88304; 88311; C1768; J0690; J1100; J1644; J1885; J2001; J2405; J2720; J7040

== ENCOUNTER 2019-04-19 07:49 | Inpatient (IN) | payer MEDICARE ==
[2019-04-16 12:10] LABS: BASOPHILS % 0.4 % (0.0-1.0); EOSINOPHILS # (AUTO) 0.2 (0.0-0.4); HEMATOCRIT 32.7 % (38.2-49.6); HEMOGLOBIN 10.7 g/dL (14.0-18.0); LYMPHOCYTES # (AUTO) 2.2 (1.0-3.2); LYMPHOCYTES % 30.5 % (18.0-39.1); MEAN CORPUSCULAR HGB CONC 32.7 g/dL (31-35); MEAN CORPUSCULAR VOLUME 88.6 fL (81-99); MONOCYTES # (AUTO) 0.7 (0.2-0.8); MONOCYTES % 9.6 % (4.4-11.3); NEUTROPHILS % 56.2 % (38.7-80.0); PLATELET COUNT 174 x10e3/uL (140-360); RED BLOOD COUNT 3.69 x10e6/uL (4.3-5.7); RED CELL DISTRIBUTION WIDTH 13.1 % (11.7-14.4)
--- NOTE | 2019-04-16 12:23 | Diagnostic Imaging Report ---
EXAMINATION: CHEST 2 VIEWS INDICATION: Pre-operative COMPARISON: Chest radiograph of 03/06/2019 FINDINGS: LINES/TUBES:None LUNGS:The lungs are well-inflated. No focal consolidation or pulmonary edema. PLEURA:No pleural effusion or pneumothorax. MEDIASTINUM:The cardiomediastinal silhouette appears normal in size and shape. Atherosclerotic calcifications of the thoracic aorta. BONES/SOFT TISSUES:No acute osseous injury. ABDOMEN:No free air under the diaphragm. IMPRESSION: No focal pneumonia or pulmonary edema. Signed by: Maral Khan MD on 04/16/2019 12:20 PM
[2019-04-16 12:27] LABS: ANION GAP 11.9 mmol/L (8-16); BLOOD UREA NITROGEN 21 mg/dL (7-26); BUN/CREATININE RATIO 31 (6-25); CALCIUM 10.6 mg/dL (8.4-10.2); CARBON DIOXIDE 26 mmol/L (22-29); CHLORIDE 103 mmol/L (98-107); CREATININE, SERUM 0.68 mg/dL (0.72-1.25); EST GLOMERULAR FILTRATION RATE > 60 ML/MIN (60-); GLUCOSE 116 mg/dL (74-118); POTASSIUM 3.9 mmol/L (3.5-5.1); SODIUM 137 mmol/L (136-145)
[2019-04-19] VITALS (8 sets, daily range): BP systolic 138–189; BP diastolic 64–90
[~2019-04-19] VITALS: Ht 190.5 cm; Wt 122.9 kg
[2019-04-19] MEDS ORDERED: LIDOCAINE HCL 1% 2 ML AMP ONE (08:43)
[2019-04-19] MEDS ORDERED: PROTAMINE SULFATE 10 MG/ML 5 ML VIAL ONE (08:43)
[2019-04-19] MEDS ORDERED: HEPARIN SOD (PORCINE) 1000 UNIT/ML 30ML ONE (08:44)
[2019-04-19] MEDS ORDERED: SODIUM CHLORIDE 0.9% 500ML 500 ML ONE (08:44)
[2019-04-19] MEDS ORDERED: THROMBIN FOR SOLN 5,000 UNIT VIAL ONE (08:44)
[2019-04-19] MEDS ORDERED: HEPARIN SOD/SOD CHLORIDE 1,000 ML ONE (09:10)
[2019-04-19] MEDS ORDERED: CEFAZOLIN SOD 1 GM/NS 50ML 50 ML IV ONE (09:53)
[2019-04-19] MEDS ORDERED: MIDAZOLAM HCL 2 MG/2 ML VIAL ONE (14:02)
[2019-04-19] MEDS ORDERED: FENTANYL CITRATE/PF 100MCG/2 ML INJ ONE ×2 (14:02→14:34)
[2019-04-19] MEDS ORDERED: ACETAMINOPHEN/CODEINE 300MG - 30MG TAB PO PRN ×2 (15:30)
[2019-04-19] MEDS ORDERED: DIPHENHYDRAMINE HCL 25 MG CAP PO PRN (15:30)
[2019-04-19] MEDS ORDERED: SODIUM CHLORIDE 0.9% 1000ML 1,000 ML IV SCH (15:30)
[2019-04-19] MEDS ORDERED: DIPHENHYDRAMINE HCL ELIX 12.5 MG/5 ML UDC PO PRN (16:15)
[2019-04-19] MEDS: DOCUSATE SODIUM 100 MG CAP PO SCH (17:00)
--- NOTE | 2019-04-19 17:59 | Consultation ---
DATE OF CONSULTATION: 04/19/2019 REASON FOR CONSULTATION: Medical management. HISTORY OF PRESENT ILLNESS: This is a 73-year-old white man, who was admitted to [facility] with clinically significant right internal carotid stenosis. Today, the patient underwent successful right carotid endarterectomy that was performed by Dr. Deshaun Cannon. The patient tolerated this procedure quite well. During the surgery, carotid plaque was removed and a carotid prosthetic patch was placed. Blood work done on April 16, 2019, reveal hemoglobin 10.7 g. White blood cell count was 7000 with 56% segmenters. Also on April 16, 2018, patient's BUN and creatinine was 21 and 0.68 respectively. The patient's potassium is 2.9. REVIEW OF SYSTEMS: GENERAL: Weight is stable. No fever or chills. HEENT: No headaches. No visual changes. CARDIOVASCULAR: No chest pain. RESPIRATORY: No cough. GI: No nausea, vomiting, diarrhea, constipation. : No dysuria, hematuria, incontinence. NEUROMUSCULAR: No limb weakness or numbness. ALLERGIES: OXYCODONE. HOME MEDICATIONS: 1. Amlodipine 5 mg daily. 2. Aspirin 325 mg daily. 3. Bupropion 300 mg daily. 4. Calcium citrate 200 mg b.i.d. 5. Doxazosin 4 mg daily. 6. Duloxetine 60 mg daily. 7. Lupron injections every 6 months. 8. Losartan 100 mg at bedtime. 9. Methylcellulose 1000 mg daily. 10. Rosuvastatin 10 mg at bedtime. 11. Coenzyme Q10 200 mg daily. PAST MEDICAL HISTORY: 1. Right carotid arthrosclerosis. 2. Ischemic heart disease (nonobstructive coronary artery disease). 3. Hypertensive heart disease. 4. Stage 2 chronic kidney disease. 5. Mild obesity. 6. Depression. 7. Hyperlipidemia. 8. Hypogonadism. 9. Prostate cancer in remission. 10. Benign prostatic hypertrophy. 11. Varicose veins. 12. Vitamin D deficiency. 13. Prediabetes. PAST SURGICAL HISTORY: 1. Left carotid endarterectomy on March 06, 2019. 2. Right carotid endarterectomy today. 3. Partial colectomy in 2001 because of precancers polyps. FAMILY HISTORY: Noncontributory. SOCIAL HISTORY: This man is , lives with . He is retired. No history of tobacco or alcohol use. PHYSICAL EXAMINATION: GENERAL: He is awake, alert, and fluent, very pleasant and cooperative. Height 6 feet 2 inches, weight is 267 pounds, BMI 34. VITAL SIGNS: Blood pressure is 138/64, pulse 74, respiratory rate is 14, oxygen saturation 98% on 4 L of oxygen, and temperature 97.6. INTEGUMENT: Skin is warm and dry. No pallor, jaundice, or diaphoresis. HEENT: Anicteric sclerae. Moist mucous membranes. NECK: Supple. The right carotid endarterectomy surgical incision is currently dressed. The left-sided carotid endarterectomy surgical incision is clean, dry, intact, and has healed adequately. CARDIOVASCULAR: Distant heart sounds. Regular rate and rhythm. LUNGS: No rales, no rhonchi. ABDOMEN: Obese and benign. EXTREMITIES: No edema or deformity. NEUROLOGIC: Intact. DIAGNOSES: 1. Status post right carotid endarterectomy with plaque removal and prosthetic patch placement. 2. Hypertensive heart disease. 3. Hyperlipidemia. PLAN: 1. We will monitor intensive care unit overnight. 2. Continue home medications. 3. Encourage incentive spirometer usage. 4. The patient most likely discharge home tomorrow. 5. I would like to thank Dr. Cannon for involving me in the care of this patient. I spent 40 minutes in care of the patient. MD BERNARDO Landis/RYANN /[id number] MATHEW
[2019-04-19] MEDS: MORPHINE SULFATE 2 MG/ML SYR 1ML IV PRN ×2 (19:02→22:03)
[2019-04-19] MEDS ORDERED: PHENYLEPHRINE HCL 1% 10 MG/ML VIAL ONE (19:27)
[2019-04-19] MEDS ORDERED: ROCURONIUM BROMIDE 10 MG/ML 5ML VIAL ONE (19:27)
[2019-04-19] MEDS ORDERED: DESFLURANE 240 ML BTL INH ONE (19:27)
[2019-04-19] MEDS ORDERED: EPHEDRINE SULFATE INJ 50 MG/10 ML SYR ONE (19:27)
[2019-04-19] MEDS ORDERED: PROPOFOL IV EMULSION 10 MG/ML 20 ML VIAL ONE (19:27)
[2019-04-19] MEDS ORDERED: LIDOCAINE HCL 2% LOCAL INJ 5 ML SDV VIAL INJ ONE (19:27)
[2019-04-19] MEDS ORDERED: DEXAMETHASONE SOD PHOS INJ 4 MG/ML VIAL ONE (19:27)
--- NOTE | 2019-04-19 19:36 | NUR ---
Patient arrived from PACU. R neck dressing CDI with ice pack on. Patient still due to void at this time. Patient does not appear to be in any distress at this time. Morphine given once for pain during shift. Dr. Sims and Dr. Ceja rounded on patient. Addendum: 04/19/19 at 1938 by Marysol Elizondo RN Patient tolerated clear liquids dinner tray well, diet progressed as ordered.
[2019-04-19] MEDS ORDERED: AMLODIPINE BESYLATE 5 MG PO SCH (21:00)
--- NOTE | 2019-04-19 21:14 | Operative Report ---
DATE OF PROCEDURE: 04/19/2019 SURGEON: Deshaun Cannon MD PREOPERATIVE DIAGNOSES: 1. Bilateral carotid stenosis, status post left carotid endarterectomy. 2. History of myocardial infarction. 3. Coronary artery disease. 4. History of colectomy for polyp. 5. Prostate cancer. POSTOPERATIVE DIAGNOSES: 1. Bilateral carotid stenosis, status post left carotid endarterectomy. 2. History of myocardial infarction. 3. Coronary artery disease. 4. History of colectomy for polyp. 5. Prostate cancer. OPERATIVE PROCEDURE: Right carotid endarterectomy with EEG monitoring and prosthetic patch repair. MARKET DEVELOPMENT TRAINER: Zaida Bassett (nursing staff). ANESTHESIA: General endotracheal with EEG monitoring. INDICATIONS: This is a 73-year-old man, who had bilateral carotid stenoses detected after a left carotid bruit was found. He does not have any symptoms from the carotid disease. He had bilateral high-grade lesions. A left carotid endarterectomy was uneventful. He has recovered from that surgery and now presents for right carotid endarterectomy. Prior to surgery, I described the operation to the patient and his family. I told him that the risks of surgery would include , bleeding, infection, heart attack, stroke, pneumonia, prolonged ICU stay, mechanical ventilation, tracheostomy, stroke, amputation, etc. We discussed the risk of stroke in detail. I told him that the risk of a stroke that might be major or lethal during the operation or in the early postoperative period was on the order of 3% to 4%. I told him that after surgery, the risk of stroke would fall to approximately 0.5 to 1% per year, but not to 0. I told him that without surgery, the risk of stroke might be as high as 4% per year and that this might also be a major or lethal stroke. I told him that the only reason to proceed with surgery was to lessen the risk of stroke over the long-term and that the operation would not be expected to improve neurologic function. The patient and his family all stated that they understood, no further questions, wanted to proceed. FINDINGS: Tight 80% to 90% right internal carotid artery stenosis. Endarterectomy performed uneventfully. EEG remained unchanged throughout. The patient emerged from anesthesia, neurologically intact. DESCRIPTION OF PROCEDURE: The patient was taken to the operative room on April 19, 2019, and placed supine up on the operating room table. EEG monitoring was established. General endotracheal anesthesia was smoothly induced. The anterior neck and chest were sterilely prepped and draped in the usual fashion using alcohol prewash and Betadine scrub and solution. Time-out was performed appropriately. Incision was made anterior to the right sternocleidomastoid muscle. Dissection was carried down to the carotid sheath. Hypoglossal nerve was clearly identified and meticulously kept out of the field. Common carotid, external and internal carotid arteries were isolated and controlled. The patient was systemically heparinized using 1 mg/kg heparin administered intravenously. The internal carotid artery was occluded followed by common and external carotid arteries as well as the facial artery. EEG remained unchanged. Lateral arteriotomy was created starting on the distal common carotid and extending onto the internal carotid artery to beyond the area of plaque involvement. Endarterectomy was then performed uneventfully. A nicely feathered plaque was removed from the distal internal carotid artery. Plaque in the common carotid artery was divided in an area of minimal involvement. Endarterectomy was also performed at the base of the external carotid artery. All particulate matter was meticulously removed, 7-0 tacking sutures were used proximally and distally. A Dacron patch was sewn into place using two running 7-0 Prolenes. Prior to completing the patch repair, the arteriotomy was again carefully inspected. It was irrigated. No particulate matter was identified. A 3.0 mm dilator passed easily through the distal anastomosis. The external carotid artery was opened and allowed to back bleed and the internal carotid and common carotid arteries were de-aired. The patch repair was completed. The common carotid artery was opened into the external carotid artery for 12 beats and then the internal carotid artery was opened as well. There was an excellent Doppler signal in the distal internal carotid artery as well as an easily palpable pulse. There was good hemostasis. A half dose of protamine was administered. Hemostasis was excellent. EEG remained unchanged. The wound was closed in layers using absorbable suture. Sterile dressings were applied. Sponge, instrument, and needle counts were correct both prior to and after wound closure. Independent search of the operative field by both operating surgeons and nurse revealed no retained instruments or sponges. The patient tolerated the procedure well, was taken to the recovery area in stable condition. Dehsaun Cannon MD GVL/MODL /[id number]
[2019-04-19] MEDS: AMLODIPINE BESYLATE 5 MG TAB PO SCH (22:02)
[2019-04-19] MEDS: LOSARTAN POTASSIUM 100 MG TAB PO SCH (22:02)
[2019-04-19] MEDS: SIMVASTATIN 20 MG TAB PO SCH (22:02)
[2019-04-20] VITALS (19 sets, daily range): BP systolic 125–187; BP diastolic 51–98
--- NOTE | 2019-04-20 00:15 | Consultation ---
DATE OF CONSULTATION: Cardiology Consultation Thank you so much for asking me to see this nice man again in consultation. HISTORY OF PRESENT ILLNESS: Mr. Garcias is a pleasant 73-year-old man, known to our office for many years, who is admitted today for right carotid endarterectomy. PAST MEDICAL HISTORY: Significant for left carotid endarterectomy in February of 2019, which he recovered uneventfully. He has longstanding hypertension and previously known coronary disease with previous inferior myocardial infarction involving the right coronary artery. He has previous prostate cancer with radioactive implants and previous partial colectomy. MEDICATIONS: Recent home medications includeaspirin 81 mg daily, Crestor 10 mg daily, Wellbutrin XL 300 mg daily, Cymbalta 60 mg daily, losartan 100 mg daily, Lupron injection twice a year, and amlodipine 5 mg daily. PERSONAL AND SOCIAL HISTORY: He does not smoke or drink. PHYSICAL EXAMINATION: GENERAL: At this time shows a pleasant, alert man with bandage on the right side of his neck. VITAL SIGNS: Blood pressure is 138/64. HEAD, EYES, EARS, NOSE, AND THROAT: Unremarkable. THORAX: Heart sounds S1 and S2 are equal. No murmurs. LUNGS: Clear. ABDOMEN: Protuberant. EXTREMITIES: No cyanosis, clubbing, or edema. NEUROLOGICAL: Intact. Speech is fluent and moves all 4 extremities fluent. LABORATORY DATA: EKG shows sinus rhythm with Q-waves in leads III and aVF. ASSESSMENT: 1. Status post right carotid endarterectomy. 2. Hypertension, clinically stable. 3. Coronary artery disease, clinically stable. 4. History of prostate cancer. PLAN: We will continue medications and monitor him carefully. He is clinically stable at this time. Thank you for asking me to see him in consultation. MD ELKE Flores/RYANN /[id number] cc: MD Tommy Landis MD
[2019-04-20] MEDS: MORPHINE SULFATE 2 MG/ML SYR 1ML IV PRN ×2 (02:01→07:30)
[2019-04-20 05:06] LABS: BASOPHILS % 0.1 % (0.0-1.0); HEMATOCRIT 32.8 % (38.2-49.6); HEMOGLOBIN 10.8 g/dL (14.0-18.0); LYMPHOCYTES # (AUTO) 1.3 (1.0-3.2); MEAN CORPUSCULAR HEMOGLOBIN 28.7 pg (28-32); MEAN CORPUSCULAR HGB CONC 32.9 g/dL (31-35); MEAN CORPUSCULAR VOLUME 87.2 fL (81-99); MONOCYTES # (AUTO) 0.9 (0.2-0.8); MONOCYTES % 7.4 % (4.4-11.3); NEUTROPHILS # (AUTO) 9.4 (2.1-6.9); PLATELET COUNT 177 x10e3/uL (140-360); RED BLOOD COUNT 3.76 x10e6/uL (4.3-5.7); RED CELL DISTRIBUTION WIDTH 12.9 % (11.7-14.4)
[2019-04-20 05:49] LABS: ANION GAP 14.4 mmol/L (8-16); BLOOD UREA NITROGEN 15 mg/dL (7-26); BUN/CREATININE RATIO 15 (6-25); CALCIUM 9.7 mg/dL (8.4-10.2); CARBON DIOXIDE 24 mmol/L (22-29); CHLORIDE 104 mmol/L (98-107); CREATININE, SERUM 0.98 mg/dL (0.72-1.25); EST GLOMERULAR FILTRATION RATE > 60 ML/MIN (60-); GLUCOSE 125 mg/dL (74-118); POTASSIUM 4.4 mmol/L (3.5-5.1); SODIUM 138 mmol/L (136-145)
--- NOTE | 2019-04-20 06:02 | NUR ---
Arterial BP noted to be in the 190-200s/80-90s.Cuff pressure 160-170s/60s. Dr Sims notified. No new rec'd
[2019-04-20] MEDS ORDERED: CLONIDINE HCL 0.1 MG TAB PO PRN (06:45)
[2019-04-20] MEDS ORDERED: CLONIDINE HCL 0.1 MG TAB PO ONE (07:30)
[2019-04-20] MEDS: DOCUSATE SODIUM 100 MG CAP PO SCH ×2 (08:39→17:00)
[2019-04-20] MEDS ORDERED: DOXAZOSIN MESYLATE 2 MG TAB PO SCH (09:00)
[2019-04-20] MEDS ORDERED: ASPIRIN 325 MG TAB PO SCH (09:00)
[2019-04-20] MEDS ORDERED: NON-FORMULARY MEDICATION (Ubidecarenone (Coq-10) 200 MG) PO SCH (09:00)
[2019-04-20] MEDS ORDERED: DULOXETINE HCL 30 MG DELAYED RELEASE PO SCH (09:00)
[2019-04-20] MEDS ORDERED: ASPIRIN 81 MG CHEW TAB PO SCH (09:00)
[2019-04-20] MEDS ORDERED: SIMVASTATIN 40 MG TAB PO SCH (09:00)
[2019-04-20] MEDS ORDERED: CALCIUM POLYCARBOPHIL 625 MG TAB PO SCH (09:00)
[2019-04-20] MEDS ORDERED: METHYLCELLULOSE 1000 MG PO SCH (09:00)
[2019-04-20] MEDS ORDERED: BUPROPION HCL 100 MG TAB PO SCH (09:00)
--- NOTE | 2019-04-20 15:25 | NUR ---
DISCUSSED IN BARRIER ROUNDS GEORGE HAS CLEARED WAITING FOR ART LINE TO BE REMOVED BY SURGICAL TEAM THEN DISCHARGE EDUCATED ABOUT IMM, SIGNED, FILED IN CHART, WITH COPY LEFT WITH FAMILY AT BEDSIDE.
--- NOTE | 2019-04-20 16:19 | Consultation ---
DATE OF CONSULTATION: Critical Care Consultation REASON FOR CONSULT: ICU management. HISTORY OF PRESENT ILLNESS: Mr. Garcias is a 73-year-old male who underwent right carotid endarterectomy by Dr. Cannon. The patient tolerated the procedure well. He is in ICU for observation. He is denying any complaints of chest pain, abdominal pain, nausea, vomiting, chest pain. He is having mild abdominal discomfort and possible diarrhea. The abdominal discomfort is mild to moderate, mostly in the central part, not radiating anywhere and it is better now. He is an ex-smoker, quit 37 years ago. REVIEW OF SYSTEMS: GENERAL: Denies any fever, chills. HEAD: Denies any head trauma. ENT: Denies any earache. CVS: Denies any chest pain. RESPIRATORY: Denies any shortness of breath. The rest of the review of systems are negative except as in HPI. PAST MEDICAL HISTORY: Hypertension, hyperlipidemia, ischemic heart disease, obesity, depression, history of benign prostatic hypertrophy. PAST SURGICAL HISTORY: Left carotid endarterectomy on March 06, 2019, right carotid endarterectomy today, partial colectomy. FAMILY AND SOCIAL HISTORY: He is , lives with his . He is retired. He smoked in remote past, quit 37 years ago. Denies any alcohol use. PHYSICAL EXAMINATION: VITAL SIGNS: Temperature 97.4, pulse of 87, blood pressure 144/89, respiratory rate is 18, and O2 saturation 96%, 100% on 2 L. HEENT: Head is atraumatic, normocephalic. NECK: Supple. The patient has a dressing on the right endarterectomy wound. CHEST: Clear to auscultation bilaterally. No wheezing. HEART: S1, S2 audible. ABDOMEN: Soft, mildly distended. EXTREMITIES: No pedal edema. NEUROLOGIC: Awake and alert. LABORATORY DATA: White count of 11,000, hemoglobin 10.8, platelets 177. Chemistries within normal limits. Chest x-ray, no focal pneumonia. ASSESSMENT/PLAN: Mr. aGrcias is a 73-year-old male who underwent carotid endarterectomy, admitted here for observation. The patient is doing well. He will be discharged home to follow up with his primary care physician. He will be discharged when cleared by Dr. Cannon. Tena Gideon, MD MF/RYANN /[id number]
[2019-04-20] MEDS ORDERED: TYLENOL WITH C1 EACH PO (19:59)
[2019-04-20] MEDS ORDERED: COLD PACK1 EACH (20:00)
[2019-04-20] MEDS ORDERED: MULTI PURPOSE TOP (20:02)
[2019-04-20] MEDS: AMLODIPINE BESYLATE 5 MG TAB PO SCH (20:10)
[2019-04-20] MEDS: SIMVASTATIN 20 MG TAB PO SCH (20:10)
[2019-04-20] MEDS: LOSARTAN POTASSIUM 100 MG TAB PO SCH (20:10)
--- NOTE | 2019-04-20 20:15 | NUR ---
Dr. Cannon rounded @ 19:55, said ok for patient to go home at this time. New order received for d/c and new prescription written. Pt summary & education given to patient with prescription. Pt d/c'ed home, no complaints at this time.
--- NOTE | 2019-04-21 05:31 | Discharge Summary ---
PRINCIPAL DIAGNOSIS: Right carotid stenosis. POSTOPERATIVE DIAGNOSIS: Right carotid stenosis. OPERATIVE PROCEDURE: Right carotid endarterectomy. CONSULTS: Internal Medicine (Dr. Sims). CONDITION ON ADMISSION: Good. CONDITION ON DISCHARGE: Good. HISTORY: This is a 73-year-old man, who had an asymptomatic carotid bruit noted. He has previously undergone an uneventful left carotid endarterectomy and now was admitted for right carotid endarterectomy. OPERATION: Right carotid endarterectomy. POSTOPERATIVE COURSE: Uneventful recovery. Remained neurologically intact. Ambulated without difficulty and tolerated diet. FOLLOWUP: With Dr. Cannon in 3 weeks. MEDICATIONS AT DISCHARGE: Same as on admission with Tylenol No. 3 as well. MD NAIN MccartneyL/MODL /[id number]
[2019-06-19] MEDS ORDERED: LEUPROLIDE ACETATE 7.5 MG IM SCH (09:00)
== END 2019-04-20 20:15 | disposition home or self-care (01) | DRG 39 ==
LOC: OR 07:49 → PACU V 14:02 → ICU 15:19
PROVIDERS: ADMIT Surgery; ATTEND Surgery
PROC: 03U Upper Arteries, Supplement (ICD-10-PCS; 2019-04-19)
PROC: 03CM0ZZ Extirpation of Matter from Right External Carotid Artery, Open Approach (ICD-10-PCS; principal; 2019-04-19 11:00)
DX: I65.23 Occlusion and stenosis of bilateral carotid arteries (principal); I10 Essential (primary) hypertension; I25.2 Old myocardial infarction; C61 Malignant neoplasm of prostate; N40.0 Benign prostatic hyperplasia without lower urinary tract symptoms; Z85.46 Personal history of malignant neoplasm of prostate; I25.10 Atherosclerotic heart disease of native coronary artery without angina pectoris; E66.01 Morbid (severe) obesity due to excess calories; Z68.33 Body mass index [BMI] 33.0-33.9, adult; I12.9 Hypertensive chronic kidney disease with stage 1 through stage 4 chronic kidney disease, or unspecified chronic kidney disease; N18.2 Chronic kidney disease, stage 2 (mild); E78.00 Pure hypercholesterolemia, unspecified
CPT/HCPCS: 36415; 71046; 80048; 85025; 86850; 86900; 86920; 88304; 88311; 93005; C1768; J0690; J1100; J1644; J2001; J2250; J2270; J2370; J2720; J3010; J7040

== ENCOUNTER → 2020-02-18 | Outpatient (CLI) | payer MEDICARE ==
[~2020-02-18] MED LIST changes: +COLD PACK1 EACH; +MULTI PURPOSE TOP; +TYLENOL WITH C1 EACH PO
--- NOTE | 2020-02-18 10:36 | Diagnostic Imaging Report ---
MRI SPINE LUMBAR WO HISTORY: Lumbar radiculopathy COMPARISON: Abdominal radiograph 08/14/2018 and 12/07/2018 TECHNIQUE: Sagittal T1, sagittal T2, sagittal STIR, axial T2, coronal T2, and axial proton density weighted images of the lumbar spine were obtained without contrast. DISCUSSION: Number of non-rib bearing lumbar vertebral bodies: 5. Alignment: Normal lordosis. No scoliosis. Vertebrae: No fractures, infection or neoplasm. Conus medullaris: Normal, ends at L1-L2 Cauda equina: The cauda equina/thecal sac is effaced at L4-L5. Otherwise, no masses or arachnoiditis. Posterior paraspinal muscles: Well preserved. No signal abnormalities. Soft tissues: Approximately 6.1 cm T2 hyperintense lesion in the left kidney is likely a cyst. A few similar much smaller exophytic cysts in the right kidney are suspected. There is moderate disc degeneration at L4-L5. T12-L1: Patent canal and foramina. L1-L2: Patent canal and foramina. L2-L3: Disc bulge without significant canal or foraminal stenosis. L3-L4: Mild bilateral foraminal stenoses due to disc bulge and facet arthrosis. No significant canal stenosis. There is mild periarticular edema along the right L3-L4 facet joint. L4-L5: Grade 1 anterolisthesis of L4 on L5 due to severe bilateral facet arthrosis. There is mild periarticular edema along the bilateral facet joints. Severe canal stenosis due to uncovered disc bulge and ligamentum flavum thickening. Moderate bilateral foraminal stenoses due to uncovered disc bulge and facet arthrosis. L5-S1: Patent canal and foramina. IMPRESSION: 1. Moderate L4-L5 disc degeneration. Associated grade 1 anterolisthesis of L4 on L5 is due to severe bilateral L4-L5 facet arthrosis. 2. Severe L4-L5 degenerative canal stenosis with thecal sac/cauda equina effacement. 3. Moderate bilateral L4-L5 degenerative foraminal stenoses. 4. Suspected mild right L3-L4 and bilateral L4-L5 facet synovitis. 5. Approximately 6.1 cm T2 hyperintense lesion in the left kidney is likely a cyst. This can be further evaluated with renal ultrasound. Signed by: Dr. Moses Abel M.D. on 02/18/2020 10:33 AM
== END ==
LOC: MRI 08:47
PROVIDERS: ATTEND Physical Medicine & Rehabilitation
DX: M54.16 Radiculopathy, lumbar region (principal)
CPT/HCPCS: 72148

== ENCOUNTER 2020-04-24 10:59 | Outpatient (RCR) | payer MEDICARE | END 2020-04-26 | LOC: PT 10:59 | PROVIDERS: ATTEND Internal Medicine | DX: G25.81 Restless legs syndrome (principal); R26.81 Unsteadiness on feet ==

== ENCOUNTER 2020-05-01 09:47 | Outpatient (RCR) | payer MEDICARE | END 2020-05-26 | LOC: PT 09:47 | PROVIDERS: ATTEND Internal Medicine | DX: G25.81 Restless legs syndrome (principal); R26.81 Unsteadiness on feet | CPT/HCPCS: 97139 ==

== ENCOUNTER → 2020-07-09 | Outpatient (CLI) | payer MEDICARE | LOC: RAD 11:36 | PROVIDERS: ATTEND Internal Medicine | DX: S20.211A Contusion of right front wall of thorax, initial encounter (principal) | CPT/HCPCS: 71101 ==

== ENCOUNTER → 2022-01-13 | Outpatient (CLI) | payer MEDICARE ==
[~2022-01-13] MED LIST changes: +MIDAZOLAM HCL 2 MG/2 ML VIAL ONE
== END ==
LOC: MRI 01-01 13:44
PROVIDERS: ATTEND Internal Medicine
DX: G45.9 Transient cerebral ischemic attack, unspecified (principal)
CPT/HCPCS: 70551; J2250

== ENCOUNTER → 2022-10-07 | Outpatient (CLI) | payer MEDICARE ==
[~2022-10-07] MED LIST changes: -MIDAZOLAM HCL 2 MG/2 ML VIAL ONE
== END ==
LOC: CT 15:36
PROVIDERS: ATTEND Urology
DX: N20.0 Calculus of kidney (principal); N13.30 Unspecified hydronephrosis
CPT/HCPCS: 74176

== ENCOUNTER → 2022-11-23 | Day surgery (SDC) | payer MEDICARE ==
[2022-11-19 12:31] LABS: ALBUMIN 4.2 g/dL (3.5-5.0); ALBUMIN/GLOBULIN RATIO 1.4 (0.8-2.0); ANION GAP 14.2 mmol/L (8-16); CHOL/HDL RATIO 4.1 (3.9-4.7); CREATININE, SERUM 1.48 mg/dL (0.72-1.25); POTASSIUM 4.2 mmol/L (3.5-5.1)
[2022-11-19 12:32] LABS: INR 0.96; PROTHROMBIN TIME 13.3 seconds (11.9-14.5)
[2022-11-19 12:51] LABS: BASOPHILS % 0.5 % (0.0-1.0); EOSINOPHILS # (AUTO) 0.2 (0.0-0.4); EOSINOPHILS % 2.7 % (0.0-6.0); HEMATOCRIT 36.9 % (38.2-49.6); HEMOGLOBIN 12.4 g/dL (14.0-18.0); LYMPHOCYTES # (AUTO) 1.7 (1.0-3.2); MEAN CORPUSCULAR HEMOGLOBIN 29.3 pg (28-32); MEAN CORPUSCULAR HGB CONC 33.6 g/dL (31-35); MEAN CORPUSCULAR VOLUME 87.2 fL (81-99); MONOCYTES # (AUTO) 0.6 (0.2-0.8); MONOCYTES % 8.3 % (4.4-11.3); NEUTROPHILS # (AUTO) 4.2 (2.1-6.9); NEUTROPHILS % 63.2 % (38.7-80.0); PLATELET COUNT 182 x10e3/uL (140-360); RED BLOOD COUNT 4.23 x10e6/uL (4.3-5.7); RED CELL DISTRIBUTION WIDTH 12.6 % (11.7-14.4)
[~2022-11-23] VITALS: Ht 188 cm; Wt 122.5 kg
[2022-11-23] VITALS (11 sets, daily range): BP systolic 110–202; BP diastolic 62–107; PULSE 56–75; RESP 11–22; TEMP 97.6; O2SAT 96–100
[~2022-11-23] MED LIST changes: +ASPIRIN 325 MG TAB ONE; +BICALUTAMIDE50 MG PO; +CLOPIDOGREL BISULFATE 75 MG TAB ONE; +FENTANYL CITRATE/PF 100MCG/2 ML INJ ONE; +FERROUS SULFAT325 MG PO; +HEPARIN SOD (PORCINE) 1000 UNIT/ML 30ML ONE; +HEPARIN SOD/SOD CHLORIDE 2,000 ML ONE; +HYDRALAZINE HCL 20 MG/ML VIAL ONE; +IOPAMIDOL 370 MG/ML 100 ML INFUS..BTL INJ ONE; +LIDOCAINE HCL 2% LOCAL 20 ML VIAL ONE; +MIDAZOLAM HCL 2 MG/2 ML VIAL ONE; +NITROGLYCERIN/D5W 200 MCG/ML 250 ML ONE; +SODIUM CHLORIDE 0.9% 1000ML 1,000 ML ONE
== END | disposition home or self-care (01) ==
LOC: CATH LAB 06:25
PROVIDERS: ATTEND Internal Medicine Cardiovascular Disease
DX: I70.202 Unspecified atherosclerosis of native arteries of extremities, left leg (principal); R07.9 Chest pain, unspecified; I10 Essential (primary) hypertension; I25.2 Old myocardial infarction; E78.6 Lipoprotein deficiency; R42 Dizziness and giddiness; Z79.899 Other long term (current) drug therapy; Z68.34 Body mass index [BMI] 34.0-34.9, adult
CPT/HCPCS: 36415; 37229; 75625; 80053; 80061; 85025; 85610; C1724; C1725 ×3; C1760; C1769 ×3; C1887; C1894; J0360; J1644; J2001; J2250; J3010; J7030; Q9967; 37228; 37232; 75716; 99152; 99153

== ENCOUNTER 2025-03-25 03:30 | Emergency (ER) | payer MEDICARE ==
[~2025-03-25] VITALS: Ht 188 cm; Wt 113.4 kg
[~2025-03-25 03:30] MED LIST changes: -ASPIRIN 325 MG TAB ONE; -CLOPIDOGREL BISULFATE 75 MG TAB ONE; -FENTANYL CITRATE/PF 100MCG/2 ML INJ ONE; -HEPARIN SOD (PORCINE) 1000 UNIT/ML 30ML ONE; -HEPARIN SOD/SOD CHLORIDE 2,000 ML ONE; -HYDRALAZINE HCL 20 MG/ML VIAL ONE; -IOPAMIDOL 370 MG/ML 100 ML INFUS..BTL INJ ONE; -LIDOCAINE HCL 2% LOCAL 20 ML VIAL ONE; -MIDAZOLAM HCL 2 MG/2 ML VIAL ONE; -NITROGLYCERIN/D5W 200 MCG/ML 250 ML ONE; -SODIUM CHLORIDE 0.9% 1000ML 1,000 ML ONE
[2025-03-25 03:35] VITALS: TEMP 97.8
[2025-03-25] MEDS: TRAMADOL HCL 50 MG TAB PO ONE (03:52)
[2025-03-25] MEDS: KETOROLAC TROMETHAMINE 30 MG/ML VIAL IM STA (03:55)
[2025-03-25 05:46] VITALS: PULSE 79; RESP 17
[2025-03-25 06:11] VITALS: BP 183/79; PULSE 82; RESP 18; TEMP 97.9; O2SAT 96
== END 2025-03-25 06:13 | disposition home or self-care (01) ==
LOC: ER 03:43
DX: M79.621 Pain in right upper arm (principal); R07.89 Other chest pain; W01.0XXA Fall on same level from slipping, tripping and stumbling without subsequent striking against object, initial encounter; Y93.01 Activity, walking, marching and hiking; Y92.89 Other specified places as the place of occurrence of the external cause; I12.9 Hypertensive chronic kidney disease with stage 1 through stage 4 chronic kidney disease, or unspecified chronic kidney disease; E11.22 Type 2 diabetes mellitus with diabetic chronic kidney disease; N18.9 Chronic kidney disease, unspecified; I25.10 Atherosclerotic heart disease of native coronary artery without angina pectoris; E78.5 Hyperlipidemia, unspecified; F32.A Depression, unspecified; Z85.46 Personal history of malignant neoplasm of prostate
CPT/HCPCS: 70450; 71101; 73030; 73080; 99283; J1885